=== PATIENT | female | born 1980 | race Caucasian/White ===

== ENCOUNTER 2017-08-18 14:15 | Emergency (ER) | payer SELFPAY ==
[~2017-08-18] VITALS: Ht 152.4 cm; Wt 68.0 kg
[~2017-08-18 14:15] MED LIST: ALBUTEROL; NORCO
[2017-08-18 16:51] LABS: BASOPHILS % 0.3 % (0.0-2.0); EOSINOPHILS % 1.9 % (0.0-5.0); HEMATOCRIT. 31.6 % (36.0-48.0); HEMOGLOBIN. 10.9 g/dL (12.0-16.0); LYMPHOCYTES % 31.3 % (20.0-50.0); MEAN CORPUSCULAR HEMOGLOBIN 31.6 pg (28.0-32.0); MEAN CORPUSCULAR VOLUME 91.4 fL (81.0-99.0); MONOCYTES % 7.6 % (2.0-8.0); NEUTROPHILS % 58.9 % (40.0-76.0); PLATELET 260 x1000/uL (130-400); RED BLOOD CELL COUNT 3.45 mill/uL (4.2-5.4); RED CELL DISTRIBUTION WIDTH 14.6 % (11.6-14.6)
[2017-08-18 16:55] LABS: HCG SCREEN NEGATIVE
[2017-08-18 16:56] LABS: CHLORIDE 106 mEq/L (98-107)
[2017-08-18] MEDS ORDERED: IBUPROFEN 600MG TABLET PO ONE (17:15)
[2017-08-18 18:19] LABS: CLARITY URINE CLOUDY (CLEAR); COLOR URINE YELLOW (YELLOW); KETONES URINE NEGATIVE (NEGATIVE); LEUKOCYTE ESTERASE URINE 2+ (NEGATIVE); NITRITE URINE NEGATIVE (NEGATIVE); OCCULT BLOOD URINE NEGATIVE (NEGATIVE); PROTEIN URINE NEGATIVE (NEGATIVE); UROBILINOGEN URINE 0.2 E.U./dL (0.2-1.0)
[2017-08-18] MEDS ORDERED: IOHEXOL-300 100 ML BOTTLE ONE (21:59)
[2017-08-18] MEDS ORDERED: TRAMADOL 50MG TABLET PO ONE (22:45)
[2017-08-18 22:57] VITALS: BP 111/78
== END 2017-08-18 23:13 | disposition home or self-care (01) ==
LOC: ER 16:08
DX: K04.7 Periapical abscess without sinus (principal); N39.0 Urinary tract infection, site not specified
CPT/HCPCS: 36415; 70486; 70487; 80053; 81003; 84703; 85025; 99285; Q9967; Z7610

== ENCOUNTER 2025-01-23 18:39 | Emergency (ER) | payer MEDICAID ==
[~2025-01-23] VITALS: Ht 165.1 cm; Wt 91.0 kg
[2025-01-23 18:56] VITALS: TEMP 36.8; O2SAT 100
[2025-01-23 19:25] LABS: BASOPHILS % 0.7 % (0.0-2.0); EOSINOPHILS % 1.8 % (0.0-5.0); HEMATOCRIT. 34.5 % (36.0-48.0); HEMOGLOBIN. 10.9 g/dL (12.0-16.0); LYMPHOCYTES % 17.2 % (20.0-50.0); MEAN PLATELET VOLUME 8.3 fl (7.4-10.4); MONOCYTES % 4.2 % (2.0-8.0); NEUTROPHILS % 76.1 % (40.0-76.0); PLATELET 320 x1000/uL (130-400); RED BLOOD CELL COUNT 4.24 mill/uL (4.2-5.4); RED CELL DISTRIBUTION WIDTH 17.4 % (11.6-14.6)
[2025-01-23] MEDS ORDERED: CEPH500C2 MT (19:37)
[2025-01-23] MEDS ORDERED: NAPR-1495 MT (19:37)
[2025-01-23 19:39] LABS: CREATININE 0.8 mg/dL (0.6-1.0); UREA NITROGEN BLOOD < 5 mg/dL (9-23)
[2025-01-23] MEDS: CEPHALEXIN 250MG CAPSULE PO STA (19:49)
[2025-01-23] MEDS: IBUPROFEN 600MG TABLET PO ONE (19:49)
[2025-01-23 20:02] VITALS: BP 99/63; PULSE 84; RESP 16; O2SAT 100
== END 2025-01-23 20:04 | disposition home or self-care (01) ==
LOC: ER 18:39
DX: S80.811A Abrasion, right lower leg, initial encounter (principal); L03.115 Cellulitis of right lower limb; Z79.1 Long term (current) use of non-steroidal anti-inflammatories (NSAID); W19.XXXA Unspecified fall, initial encounter; Y93.89 Activity, other specified; Y92.89 Other specified places as the place of occurrence of the external cause; Y99.8 Other external cause status
CPT/HCPCS: 36415; 80048; 85025; 99283